=== PATIENT | female | born 1990 | race Caucasian/White ===

== ENCOUNTER 2023-09-06 06:24 | Inpatient (IN) ==
[2023-09-06] MEDS: D5 1/2 NS 1,000 ML 1,000 ML IV ONE (06:40)
[2023-09-06] MEDS ORDERED: NUBAIN INJ 20 MG AMP IVP PRN (06:47)
[2023-09-06] MEDS ORDERED: STADOL INJ IVP PRN (06:47)
[2023-09-06] MEDS ORDERED: REGLAN INJ 10 MG VIAL IVP PRN ×2 (06:47→14:18)
[2023-09-06] MEDS: D5 1/2 NS 1,000 ML 1,000 ML IV SCH (06:58)
[2023-09-06] MEDS: ZOFRAN INJ 4 MG VIAL IVP PRN (07:23)
--- NOTE | 2023-09-06 07:32 | DR.OB ---
OB QUICK NOTE Assessment/Plan (1) Active labor at term: Assessment/Plan: L&D 09/06/23 at 7:10am S-No complaint. O-Afebrile,VSS [id number] with good LTV, +accel, no decel. CTX=mild uterine irritability CVX=4cm/50%/-1/VTX AROM with light meconium. IUPC and FSE placed. No vaginal or perineal lesions. A-IUP at 39 4/7 weeks for induction h/o genital herpes-no active lesions Latent syphilis P-Begin pitocin induction Anticipate
[2023-09-06] MEDS: OXYTOCIN 20 UNIT/1,000 ML-NS 20 UNIT/1,000 ML PLAST..BAG IV PRN (07:42)
[2023-09-06] MEDS: LR 1,000 ML IV 1,000 ML IV ONE ×2 (08:35→11:10)
[2023-09-06] MEDS: FENTANYL VIAL INJ 100 mcg ONE (08:55)
[2023-09-06] MEDS: NAROPIN EPIDURAL 0.2% 100 ML ONE (09:05)
[2023-09-06] MEDS: BETADINE SOLN ONE (12:07)
[2023-09-06] MEDS: PITOCIN IVP ONE (12:24)
[2023-09-06] MEDS: OXYTOCIN 20 UNIT/1,000 ML-NS 20 UNIT/1,000 ML PLAST..BAG IV SCH (13:10)
[2023-09-06] MEDS ORDERED: OXYTOCIN 20 UNIT/1,000 ML-NS 20 UNIT/1,000 ML PLAST..BAG IV PRN (14:18)
[2023-09-06] MEDS ORDERED: ZOFRAN INJ 4 MG VIAL IVP PRN (14:18)
[2023-09-06] MEDS ORDERED: DERMOPLAST PAIN RELIEF SPRAY TOP PRN (14:24)
[2023-09-06] MEDS ORDERED: AMBIEN PO PRN (14:24)
[2023-09-06] MEDS ORDERED: MILK OF MAGNESIA PO PRN (14:24)
[2023-09-06] MEDS ORDERED: MOTRIN TAB 800 MG PO PRN (14:24)
[2023-09-06] MEDS ORDERED: D5 1/2 NS 1,000 ML 1,000 ML IV SCH (15:00)
[2023-09-06] MEDS: PITOCIN ONE (16:34)
--- NOTE | 2023-09-06 16:53 | DR.OB ---
OB QUICK NOTE Assessment/Plan (1) Active labor at term: Assessment/Plan: Delivery Note [employer] 09/06/23 at 12:18pm Patient complete and pushing. Head delivered over intact perineum. No nuchal cord. Nose and mouth bulb suctioned. Body delivered over intact perineum by . Cord clamped x 2 and cut. handed to attendant. Cord sent for gases. Placenta delivered spontaneously / intact / 3 vessel cord. No CVX tears noted. A small midline second degree tear noted and repaired with 0-vicryl in usual fashion. Viable male delivered by , VTX/OA, wt=9'1" and 8/9, stable to NBN. Mother stable to RR. DBO=[id number].
[2023-09-06] MEDS: ADACEL or BOOSTRIX TDaP VACCINE IM ONE (18:15)
[2023-09-07 04:43] VITALS: O2SAT 98
[2023-09-07] MEDS: MOTRIN TAB 800 MG PO PRN (04:58)
[2023-09-07 05:22] LABS: HEMATOCRIT 34.1 % (36.0-47.0); HEMOGLOBIN 11.5 g/dL (12.0-16.0)
[2023-09-07 06:32] VITALS: RESP 18
[2023-09-07] MEDS: VALTREX PO SCH (08:38)
[2023-09-07] MEDS: PRENATAL PLUS PO SCH (08:39)
[2023-09-07 17:15] VITALS: BP 109/71; PULSE 78; TEMP 98.4
== END 2023-09-07 15:15 | disposition home or self-care (01) | DRG 807 ==
LOC: LD 06:24 → MERGE 06:30 → MED/SURG 13:23
PROVIDERS: ADMIT Specialist; ATTEND Specialist
DX: O70.1 Second degree perineal laceration during delivery; Z37.0 Single live birth; O98.119 Syphilis complicating pregnancy, unspecified trimester; Z01.812 Encounter for preprocedural laboratory examination; Z3A.39 39 weeks gestation of pregnancy